=== PATIENT | male | born 2000 | race Two or more races ===

== ENCOUNTER 2022-10-09 23:08 | Emergency (ER) | payer SELFPAY ==
[~2022-10-09] VITALS: Ht 160 cm; Wt 52.2 kg
[2022-10-09] MEDS ORDERED: SILVER SULFADIAZINE CREAM 25 GM TUBE ONE (23:34)
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
--- NOTE | 2022-10-09 23:48 | NUR ---
Patient discharged to home in stable condition. Written and verbal after care instructions given. Patient verbalizes understanding of instruction. PT ambulatory with a steady gait
[2022-10-09 23:50] VITALS: BP 118/68
[2022-10-10] MEDS ORDERED: IBUPROFEN 400 MG TABLET PO ONE
[2022-10-10] MEDS ORDERED: SILVER SULFADIAZINE 50 GM JAR TP PRN
== END 2022-10-09 23:48 | disposition home or self-care (01) ==
LOC: ER 23:12 → EDSEX 23:12 → ER 23:48
DX: T25.122A Burn of first degree of left foot, initial encounter (principal); X11.8XXA Contact with other hot tap-water, initial encounter; Y93.89 Activity, other specified; Y92.89 Other specified places as the place of occurrence of the external cause; Y99.8 Other external cause status